=== PATIENT | female | born 1985 | race Caucasian/White ===

== ENCOUNTER 2017-12-07 06:15 | Inpatient (IN) | payer OTHER ==
[~2017-12-07 06:15] MED LIST: CITRIC ACID/SODIUM CITRATE 30 ML UNIT-DOSE CUP PO ONE; ELECTROLYTE-148 SOLN 500 ML IV ONE
[2017-12-07 06:41] VITALS: BMI 36.8
[2017-12-07] MEDS ORDERED: ELECTROLYTE-148 SOLN 1,000 ML IV SCH ×2 (06:45→08:15)
[2017-12-07] MEDS ORDERED: morphine SULFATE/Preservative Free 0.5 MG/ML (1cc Syringe) ONE (08:00)
--- NOTE | 2017-12-07 08:11 | HP ---
Past Medical History - Admission Chief Complaint: Elective / Multiparity History of Present Illness: 32 yo @ 39 weeks gestation with previous , is pre op for repeat C- Section and bilateral tubal ligation. History Source: Patient Limitations to Obtaining History: No Limitations - Past Medical History ...: 3 ...Para: 2 ...Term: 1 ...: 1 ...Spon : 0 ...Induced : 0 ...Multiple Gestation: 0 ...LMP: 03/07/17 ... Weeks Gestation by Dates: 39.2 ...EDC by Dates: 12/12/17 ...EDC by Sono: 12/12/17 - Past Surgical History Past Surgical History: Yes: Hx Myomectomy: No Hx Transabdominal Cerclage: No - Smoking History Smoking history: Never smoked Have you smoked in the past 12 months: No - Alcohol/Substance Use Hx Alcohol Use: No - Social History Usual Living Arrangement: Yes: With Spouse History of Recent Travel: No Home Medications - Allergies Allergies/Adverse Reactions: Allergies Allergy/AdvReac Type Severity Reaction Status Date / Time No Known Allergies Allergy Verified 12/03/17 11:48 - Home Medications Home Medications: Ambulatory Orders Vit No.130/Iron/Folic [ Vitamins] 1 each PO DAILY 10/11/17 Family Disease History - Family Disease History Family History: Unremarkable Review of Systems - Review of Systems Constitutional: reports: No Symptoms Eyes: reports: No Symptoms HENT: reports: No Symptoms Neck: reports: No Symptoms Cardiovascular: reports: No Symptoms Respiratory: reports: No Symptoms Gastrointestinal: reports: No Symptoms Genitourinary: reports: Pain Breasts: reports: No Symptoms Reported Musculoskeletal: reports: No Symptoms Neurological: reports: No Symptoms Hematology/Lymphatic: reports: No Symptoms Psychiatric: reports: No Symptoms Pain Intensity: 3 Physical Exam - Maternity Vital Signs: Vital Signs Temperature 98.5 F 12/07/17 06:15 Pulse Rate 77 12/07/17 06:15 Respiratory Rate 18 12/07/17 06:15 Blood Pressure 109/71 12/07/17 06:15 O2 Sat by Pulse Oximetry (%) Constitutional: Yes: Well Nourished Eyes: Yes: Conjunctiva Clear HENT: Yes: Atraumatic Neck: Yes: Supple Cardiovascular: Yes: Regular Rate and Rhythm Lungs: Clear to auscultation - Abdominal Exam/OB Number of Fetuses: Single Presentation: Vertex Regularity: Irritability - Physical Exam ...Motor Strength: WNL Psychiatric: Yes: Alert, Oriented Problem List - Problems (1) Previous section Code(s): Z98.891 - HISTORY OF UTERINE SCAR FROM PREVIOUS SURGERY Assessment/Plan Previous Multiparity Pre op for repeat and BTL Consent signed Anesthesia to see patient
[2017-12-07] MEDS ORDERED: ceFAZolin SODIUM 1 GM VIAL ONE (08:25)
[2017-12-07] MEDS ORDERED: OXYTOCIN 20 UNITS in 0.9% NS 20 UNIT/1,000 ML INFUS.BAG IV ONE (08:48)
[2017-12-07] MEDS ORDERED: TUBERCULIN PPD 5 TU/0.1ML SYRINGE (IN PATIENT USE ONLY) ID ONE (09:00)
[2017-12-07] MEDS ORDERED: OXYTOCIN 10 UNITS/ML VIAL ONE (09:05)
[2017-12-07] MEDS ORDERED: IBUPROFEN 800 MG/8 ML IJ IVPB PRN (09:45)
[2017-12-07] MEDS ORDERED: METHYLERGONOVINE MALEATE 0.2 MG/1 ML AMP IM PRN (09:45)
[2017-12-07] MEDS ORDERED: IBUPROFEN 600 MG TABLET (FP) PO PRN (09:45)
[2017-12-07] MEDS ORDERED: oxyCODONE HCL 5 MG TABLET PO PRN (09:45)
--- NOTE | 2017-12-07 09:50 | OP ---
Operative Note - Note: Operative Date: 12/07/17 Pre-Operative Diagnosis: Previous / Multiparity Operation: Repeat / Bilateral tubal ligation Findings: Pelvic adhesion Post-Operative Diagnosis: Same as Pre-op Surgeon: Hillary Pratt Ginner Helper: Estuardo Robertson Specimens Removed: Placenta / Portion of fallopian tubes Estimated Blood Loss (mls): 600
[2017-12-07] MEDS: OXYTOCIN 20 UNITS in 0.9% NS 20 UNIT/1,000 ML INFUS.BAG IV SCH (10:31)
[2017-12-07] MEDS: PRENATAL VITAMINS W/ FOLIC ACID TABLET (FP) PO SCH (11:01)
[2017-12-08] MEDS: SIMETHICONE 80 MG TAB.CHEW (FP) PO PRN ×3 (06:22→23:16)
[2017-12-08] MEDS: ACETAMINOPHEN 325 MG TABLET (FP) PO PRN ×3 (06:22→23:16)
[2017-12-08] MEDS: IBUPROFEN 600 MG TABLET (FP) PO PRN ×3 (06:23→23:18)
--- NOTE | 2017-12-08 08:23 | PN ---
Progress Note (short form) - Note Progress Note: Post op day#1.S/P C Section with BTL under spinal anesthesia with duramorph uneventful.Patient stable and has little pain for which she is on medication.No any anesthesia related problem.Patient DC from the anesthesia care.
[2017-12-08 09:04] LABS: BASO % 0.1 % (0-2.0); EOS % 0.2 % (0-4.5); HEMATOCRIT 31.5 % (32.4-45.2); HEMOGLOBIN 10.8 GM/dL (10.7-15.3); LYMPH % 12.5 % (8-40); MCH 31.2 pg (25.7-33.7); MCHC 34.4 g/dl (32.0-36.0); MEAN CELL VOLUME 90.6 fl (80-96); MEAN PLT VOLUME 9.2 fl (7.5-11.1); NEUT % 81.2 % (42.8-82.8); PLATELET COUNT 225 K/MM3 (134-434); RBC 3.48 M/mm3 (3.60-5.2); RDW 15.5 % (11.6-15.6); WHITE BLOOD COUNT 8.9 K/mm3 (4.0-10.0)
[2017-12-08] MEDS: PRENATAL VITAMINS W/ FOLIC ACID TABLET (FP) PO SCH (09:28)
[2017-12-08] MEDS ORDERED: BISACODYL 10 MG SUPP.RECT RC PRN (09:45)
--- NOTE | 2017-12-08 10:41 | PN ---
Post Progress Note - Subjective Subjective: 32 yo Para 2 status post repeat , seen and evaluated. Doing well. Post Day: 1 Type of Delivery: Repeat C/S Vital Signs: Vital Signs Temperature 98.6 F 12/08/17 08:00 Pulse Rate 81 12/08/17 08:00 Respiratory Rate 18 12/08/17 08:00 Blood Pressure 93/51 12/08/17 08:00 O2 Sat by Pulse Oximetry (%) 100 12/07/17 21:00 Breast Exam: Yes: Soft Incision: Yes: Dressing dry and intact Abdomen/GI: Yes: Abdomen soft, Tolerating PO Lochia: Yes: Rubra Lochia, amount: Small Extremities: Yes: Calves non-tender Activity: Other (She's out of bed to chair) - Labs Labs: CBC WBC 8.9 K/mm3 (4.0-10.0) 12/08/17 08:30 RBC 3.48 M/mm3 (3.60-5.2) L 12/08/17 08:30 Hgb 10.8 GM/dL (10.7-15.3) 12/08/17 08:30 Hct 31.5 % (32.4-45.2) L 12/08/17 08:30 MCV 90.6 fl (80-96) 12/08/17 08:30 MCH 31.2 pg (25.7-33.7) 12/08/17 08:30 MCHC 34.4 g/dl (32.0-36.0) 12/08/17 08:30 RDW 15.5 % (11.6-15.6) 12/08/17 08:30 Plt Count 225 K/MM3 (134-434) 12/08/17 08:30 MPV 9.2 fl (7.5-11.1) 12/08/17 08:30 Absolute Neuts (auto) 7.3 K/mm3 (1.5-8.0) 12/08/17 08:30 Neutrophils % 81.2 % (42.8-82.8) D 12/08/17 08:30 Lymphocytes % 12.5 % (8-40) D 12/08/17 08:30 Monocytes % 6.0 % (3.8-10.2) 12/08/17 08:30 Eosinophils % 0.2 % (0-4.5) 12/08/17 08:30 Basophils % 0.1 % (0-2.0) 12/08/17 08:30 Nucleated RBC % 0 % (0-0) 12/08/17 08:30 Problem List - Problems (1) Previous section Code(s): Z98.891 - HISTORY OF UTERINE SCAR FROM PREVIOUS SURGERY (2) Status post repeat low transverse section Code(s): Z98.891 - HISTORY OF UTERINE SCAR FROM PREVIOUS SURGERY Assessment/Plan Status post repeat Stable Continue routine post op care
[2017-12-08] MEDS: OXYTOCIN 20 UNITS in 0.9% NS 20 UNIT/1,000 ML INFUS.BAG IV SCH (12:04)
[2017-12-09] MEDS: SIMETHICONE 80 MG TAB.CHEW (FP) PO PRN ×2 (06:08→16:36)
[2017-12-09] MEDS: ACETAMINOPHEN 325 MG TABLET (FP) PO PRN ×3 (06:08→20:25)
[2017-12-09] MEDS: IBUPROFEN 600 MG TABLET (FP) PO PRN ×3 (06:11→20:27)
--- NOTE | 2017-12-09 08:21 | PN ---
Post Note - Post Date of Delivery: 12/07/17 Post Day: 2 Vital Signs: Vital Signs - 24 hr 12/08/17 22:00 Temperature 98.6 F Pulse Rate 109 H Respiratory 18 Rate Blood Pressure 106/56 Labs: Laboratory Results - last 24 hr 12/08/17 08:30 WBC 8.9 RBC 3.48 L Hgb 10.8 Hct 31.5 L MCV 90.6 MCH 31.2 MCHC 34.4 RDW 15.5 Plt Count 225 MPV 9.2 Absolute Neuts (auto) 7.3 Neutrophils % 81.2 D Lymphocytes % 12.5 D Monocytes % 6.0 Eosinophils % 0.2 Basophils % 0.1 Nucleated RBC % 0 - Objective Afebrile: Yes Uterus: Fundus firm, Non-tender Vagina: Scant lochia Extremities: Non-tender - Assessment/Plan (1) Status post repeat low transverse section Assessment: Other (POD2) Plan: Routine Care
[2017-12-09] MEDS: PRENATAL VITAMINS W/ FOLIC ACID TABLET (FP) PO SCH (10:27)
[2017-12-09] MEDS: OXYTOCIN 20 UNITS in 0.9% NS 20 UNIT/1,000 ML INFUS.BAG IV SCH (10:28)
[2017-12-10] MEDS: ACETAMINOPHEN 325 MG TABLET (FP) PO PRN (00:37)
[2017-12-10] MEDS: SIMETHICONE 80 MG TAB.CHEW (FP) PO PRN (00:37)
[2017-12-10] MEDS: IBUPROFEN 600 MG TABLET (FP) PO PRN (00:39)
[2017-12-10 07:44] VITALS: BP 123/63; PULSE 74; TEMP 98
[2017-12-10 08:28] LABS: BASO % 0.4 % (0-2.0); HEMATOCRIT 30.6 % (32.4-45.2); HEMOGLOBIN 10.2 GM/dL (10.7-15.3); MCH 30.5 pg (25.7-33.7); MCHC 33.2 g/dl (32.0-36.0); MEAN CELL VOLUME 91.9 fl (80-96); MEAN PLT VOLUME 8.5 fl (7.5-11.1); MONO % 5.1 % (3.8-10.2); NEUT % 74.5 % (42.8-82.8); PLATELET COUNT 241 K/MM3 (134-434); RBC 3.33 M/mm3 (3.60-5.2); RDW 15.6 % (11.6-15.6); WHITE BLOOD COUNT 8.3 K/mm3 (4.0-10.0)
[2017-12-10] MEDS: PRENATAL VITAMINS W/ FOLIC ACID TABLET (FP) PO SCH (09:00)
--- NOTE | 2017-12-15 16:14 | PATH ---
Surgical Pathology Report Patient Name: CHAR[facility] FARR [facility]. Rec. #: [id number] /Age/Gender: 1985 (Age: 32) / F Account: [id number] Location: [facility] OBS/BIOCHEMIST Taken: 12/07/2017 Received: 12/08/2017 Reported: 12/15/2017 Physicians: Hillary Pratt M.D. Specimen(s) Received A: PLACENTA B: LEFT PORTION FALLOPIAN TUBE C: RIGHT PORTION FALLOPIAN TUBE Clinical History Final Diagnosis A. PLACENTA, SECTION: 416 G THIRD TRIMESTER PLACENTA WITH TRIVASCULAR UMBILICAL CORD AND UNREMARKABLE PLACENTAL MEMBRANES. B. FALLOPIAN TUBE, LEFT, PARTIAL EXCISION: FULL LUMINAL PORTION OF UNREMARKABLE FALLOPIAN TUBE. C. FALLOPIAN TUBE, RIGHT, PARTIAL EXCISION: FULL LUMINAL PORTION OF UNREMARKABLE FALLOPIAN TUBE. Electronically Signed Laya Avitia M.D. Gross Description A. The specimen is received fresh labeled placenta and is a 416 gram, 15.0 x 13.5 x 2.8 cm. placenta with attached membranes and umbilical cord. The attached membranes are mejia, translucent with focal opacities and insert marginally. The umbilical cord measures 33 cm. in length and averages 0.8 cm. in diameter. The cord inserts eccentrically, 1.5 cm. to the nearest margin. No true knots or strictures are identified. Cut surface of the umbilical cord reveals 3 vessels. The surface is pena-blue with minimal fibrin deposition and appropriate caliber vessels. The maternal surface is red-brown with focal defects. Sectioning reveals red-brown, spongy parenchyma. No lesions are identified. [employer] sections are submitted in three cassettes as follows: 1- membrane rolls and umbilical cord; 2-3- full thickness sections of placenta. B. Received in formalin labeled "portion of left fallopian tube," is a 0.8 cm in length portion of fallopian tube. No fimbria are present. The outer surface is mejia-masters and smooth. Sectioning reveals an unremarkable lumen. [employer] sections are submitted in one cassette. C. Received in formalin labeled "portion of right fallopian tube," is a 1.0 cm in length portion of fallopian tube. No fimbria are present. The outer surface is mejia-masters and smooth. Sectioning reveals an unremarkable lumen. [employer] sections are submitted in one cassette. 12/11/2017 saudi12/11/2017
== END 2017-12-10 13:15 | disposition home or self-care (01) | DRG 540 ==
LOC: JLDR 06:15 → J3W 10:44
PROVIDERS: ADMIT Obstetrics & Gynecology; ATTEND Obstetrics & Gynecology
PROC: 10D00Z1 Extraction of Products of Conception, Low, Open Approach (ICD-10-PCS; principal; 2017-12-07)
PROC: 0UB70ZZ Excision of Bilateral Fallopian Tubes, Open Approach (ICD-10-PCS; 2017-12-07)
DX: O34.219 Maternal care for unspecified type scar from previous cesarean delivery (principal); Z3A.39 39 weeks gestation of pregnancy; Z37.0 Single live birth; Z30.2 Encounter for sterilization
CPT/HCPCS: 36415; 85025; 88302-TC; 88307-TC